=== PATIENT | female | born 1980 | race Caucasian/White ===

== ENCOUNTER 2023-12-24 19:04 | Emergency (ER) | payer OTHER ==
[2023-12-24] MEDS ORDERED: Clindamycin 150 MG CAP ONE (19:40)
[2023-12-24] MEDS ORDERED: HYDROcodone/Acetaminophen 10/325 mg Tablet ONE (19:40)
[2023-12-24] MEDS ORDERED: Ketorolac Tromethamine 60 MG/2 ML VIAL ONE (19:40)
== END 2023-12-24 19:55 | disposition home or self-care (01) ==
LOC: NAV ERS 19:04
DX: K04.7 Periapical abscess without sinus (principal)
CPT/HCPCS: 96372; 99282; J1885